=== PATIENT | female | born 1970 | race Caucasian/White ===

== ENCOUNTER 2022-03-24 10:53 | Day surgery (SDC) | payer OTHER ==
[~2022-03-24] VITALS: Ht 170.2 cm; Wt 79.0 kg
[2022-03-24] MEDS ORDERED: LORA.5 PO (11:30)
[2022-03-24] MEDS ORDERED: MONT10T PO (11:31)
[2022-03-24] MEDS ORDERED: IBUP600 (11:32)
== END 2022-03-24 13:39 | disposition home or self-care (01) ==
LOC: ORSCSDS 10:53
PROVIDERS: Otolaryngology
PROC: 0CBT8ZX Excision of Right Vocal Cord, Via Natural or Artificial Opening Endoscopic, Diagnostic (ICD-10-PCS; principal; 2022-03-24 12:30)
DX: R49.0 Dysphonia (principal); C32.0 Malignant neoplasm of glottis; K21.9 Gastro-esophageal reflux disease without esophagitis; F41.9 Anxiety disorder, unspecified; Z87.891 Personal history of nicotine dependence; Z79.899 Other long term (current) drug therapy
CPT/HCPCS: 88305; J1100; J1885; J2250; J2405; J2704; J3010

== ENCOUNTER → 2022-04-05 | Outpatient (CLI) | payer OTHER ==
[~2022-04-05] MED LIST: ESOM20 PO; HYDR1TAB94 PO; IBUP600; LORA.5 PO; METO10 PO; MONT10T PO; OLAN2.5 PO; ONDA4ODT MM
== END | disposition home or self-care (01) ==
LOC: PLD 07:18 → LAB SHORT 07:18
DX: C32.9 Malignant neoplasm of larynx, unspecified (principal)
CPT/HCPCS: 88173

== ENCOUNTER → 2022-04-19 | Outpatient (CLI) | payer OTHER ==
[~2022-04-19] MED LIST changes: -ESOM20 PO; -HYDR1TAB94 PO; -METO10 PO; -OLAN2.5 PO; -ONDA4ODT MM
== END | disposition home or self-care (01) ==
LOC: LAB SHORT 13:44 → PLD 13:44
DX: C32.9 Malignant neoplasm of larynx, unspecified (principal)
CPT/HCPCS: 88173

== ENCOUNTER 2022-06-23 11:56 | Day surgery (SDC) | payer OTHER ==
[2022-06-23] MEDS ORDERED: OLAN2.5 PO (14:05)
[2022-06-23] MEDS ORDERED: METO10 PO (14:06)
[2022-06-23] MEDS ORDERED: ONDA4ODT MM (14:07)
[2022-06-23] MEDS ORDERED: HYDR1TAB94 PO (14:08)
[2022-06-23] MEDS ORDERED: ESOM20 PO (14:08)
== END 2022-06-23 15:25 | disposition home or self-care (01) ==
LOC: ATC 11:56
DX: C32.8 Malignant neoplasm of overlapping sites of larynx (principal); D64.81 Anemia due to antineoplastic chemotherapy
CPT/HCPCS: 36430; 86850; 86900; 86901; 86923; J7040; P9016

== ENCOUNTER → 2022-07-01 | Outpatient (CLI) | payer OTHER ==
[~2022-07-01] MED LIST changes: +ESOM20 PO; +HYDR1TAB94 PO; +METO10 PO; +OLAN2.5 PO; +ONDA4ODT MM; +TRAZ50 PO
[2022-07-01 09:59] LABS: Hematocrit 22.8 % (33.0-51.0); Hemoglobin 7.9 g/dL (11.5-16.0); Mean Corpuscular HGB 33.2 pg (26.0-34.0); Mean Corpuscular HGB Conc 34.6 g/dL (31.5-36.5); Mean Corpuscular Volume 96 fL (80-100); Platelet Count 97 K/mm3 (150-400); RDW Coefficient Variation 14.4 % (11.7-14.2); RDW Standard Deviation 48.1 fL (35.1-46.3); Red Blood Cell Count 2.38 M/mm3 (3.80-5.20)
[2022-07-01 10:21] LABS: BASOPHILS PERCENT MAN 0 % (0-2); EOSINOPHILS PERCENT MAN 0 % (0-6); LYMPHOCYTES ABSOLUTE MAN 0.41 K/mm3 (0.84-5.20); LYMPHOCYTES PERCENT MAN 52 % (21-46); MONOCYTES ABSOLUTE MAN 0.09 K/mm3 (0.16-1.47); MONOCYTES PERCENT MAN 12 % (4-13); NEUTROPHILS ABSOLUTE MAN 0.28 K/mm3 (1.96-9.15); SEG NEUTROPHILS PERCENT MAN 36 % (41-73); TOTAL CELLS COUNTED 25
== END | disposition home or self-care (01) ==
LOC: LAB 09:17 → LAB SHORT 09:17
PROVIDERS: Internal Medicine Hematology & Oncology
DX: C32.0 Malignant neoplasm of glottis (principal)
CPT/HCPCS: 85025

== ENCOUNTER 2022-07-16 00:23 | Day surgery (SDC) | payer OTHER ==
[~2022-07-16 00:23] MED LIST changes: -TRAZ50 PO
[2022-07-16] MEDS ORDERED: TRAZ50 PO (14:26)
== END 2022-07-16 17:45 | disposition home or self-care (01) ==
LOC: ATC 00:23 → EDSTATUS 14:00 → ATC 14:00
DX: C32.8 Malignant neoplasm of overlapping sites of larynx (principal); D64.81 Anemia due to antineoplastic chemotherapy; C77.0 Secondary and unspecified malignant neoplasm of lymph nodes of head, face and neck
CPT/HCPCS: 36415; 86850; 86900; 86901; 86923; J7040; P9016

== ENCOUNTER 2024-11-12 11:05 | Emergency (ER) | payer OTHER ==
[~2024-11-12] VITALS: Ht 170.2 cm; Wt 88.5 kg
[~2024-11-12 11:05] MED LIST changes: +TRAZ50 PO
[2024-11-12 14:23] VITALS: BP 149/96
[2024-11-12] MEDS ORDERED: Ketorolac Tromethamine 15mg Vial IM ONE (15:20)
[2024-11-12] MEDS ORDERED: HYDR1TAB94 PO (15:34)
== END 2024-11-12 15:40 | disposition home or self-care (01) ==
LOC: ER 11:05
DX: S49.92XA Unspecified injury of left shoulder and upper arm, initial encounter (principal); W01.0XXA Fall on same level from slipping, tripping and stumbling without subsequent striking against object, initial encounter; Z88.6 Allergy status to analgesic agent; Z91.09 Other allergy status, other than to drugs and biological substances; Z79.891 Long term (current) use of opiate analgesic; Z79.899 Other long term (current) drug therapy; Z79.83 Long term (current) use of bisphosphonates; Z79.810 Long term (current) use of selective estrogen receptor modulators (SERMs); Z79.1 Long term (current) use of non-steroidal anti-inflammatories (NSAID)
CPT/HCPCS: 73030; 96372; 99283-25; J1885